=== PATIENT | male | born 1985 | race African-American/Black ===

== ENCOUNTER 2018-03-21 17:24 | Emergency (ER) | payer OTHER ==
[~2018-03-21] VITALS: Ht 188 cm; Wt 81.2 kg
[2018-03-21 17:39] VITALS: Ht 188 cm; Wt 81.2 kg
[2018-03-21 22:27] VITALS: BP 129/71
== END 2018-03-21 22:27 | disposition home or self-care (01) ==
LOC: ED 17:24
DX: S13.4XXA Sprain of ligaments of cervical spine, initial encounter (principal); S33.5XXA Sprain of ligaments of lumbar spine, initial encounter; V49.19XA Passenger injured in collision with other motor vehicles in nontraffic accident, initial encounter; Y93.89 Activity, other specified; Y92.413 State road as the place of occurrence of the external cause; Y99.8 Other external cause status
CPT/HCPCS: J1885